=== PATIENT | male | born 1990 | race African-American/Black ===

== ENCOUNTER 2016-08-13 16:40 | Emergency (ER) | payer SELFPAY ==
[2016-08-13] MEDS ORDERED: Ibuprofen 200 MG TAB ONE (17:15)
== END 2016-08-13 17:38 | disposition home or self-care (01) ==
LOC: NAV ERS 16:40
DX: K02.9 Dental caries, unspecified (principal); J02.9 Acute pharyngitis, unspecified; J45.909 Unspecified asthma, uncomplicated
CPT/HCPCS: 99283

== ENCOUNTER 2016-10-09 20:23 | Emergency (ER) | payer SELFPAY ==
[2016-10-09] MEDS ORDERED: Amoxicillin/Potassium Clav 875 MG TAB ONE (20:56)
[2016-10-09] MEDS ORDERED: Ibuprofen 800 MG TAB ONE (20:56)
== END 2016-10-09 21:00 | disposition home or self-care (01) ==
LOC: NAV ERS 20:23
DX: K08.89 Other specified disorders of teeth and supporting structures (principal)
CPT/HCPCS: 99282

== ENCOUNTER 2017-01-04 17:28 | Emergency (ER) | payer SELFPAY ==
[2017-01-04] MEDS ORDERED: Ibuprofen 800 MG TAB ONE (17:40)
== END 2017-01-04 17:58 | disposition home or self-care (01) ==
LOC: NAV ERS 17:28
DX: H60.91 Unspecified otitis externa, right ear (principal); F17.210 Nicotine dependence, cigarettes, uncomplicated
CPT/HCPCS: 99283

== ENCOUNTER 2017-01-05 06:17 | Emergency (ER) | payer SELFPAY | END 2017-01-05 06:54 | disposition home or self-care (01) | LOC: NAV ERS 06:17 | DX: H65.91 Unspecified nonsuppurative otitis media, right ear (principal); H60.91 Unspecified otitis externa, right ear; F17.210 Nicotine dependence, cigarettes, uncomplicated | CPT/HCPCS: 99282 ==

== ENCOUNTER 2022-01-15 16:51 | Emergency (ER) | payer SELFPAY ==
[2022-01-15] MEDS ORDERED: Ibuprofen 200 MG TAB ONE ×2 (17:05)
== END 2022-01-15 18:08 | disposition home or self-care (01) ==
LOC: NAV ERS 16:51
DX: J10.1 Influenza due to other identified influenza virus with other respiratory manifestations (principal); F17.210 Nicotine dependence, cigarettes, uncomplicated
CPT/HCPCS: 87804; 99283

== ENCOUNTER 2022-07-09 11:27 | Emergency (ER) | payer SELFPAY ==
[2022-07-09] MEDS ORDERED: Tetracaine 0.5% PF 4 ML BOT ONE (11:52)
[2022-07-09] MEDS ORDERED: Fluorescein Opthalmic Strip ONE (12:15)
== END 2022-07-09 12:45 | disposition home or self-care (01) ==
LOC: NAV ERS 11:27
DX: S05.02XA Injury of conjunctiva and corneal abrasion without foreign body, left eye, initial encounter (principal); F17.210 Nicotine dependence, cigarettes, uncomplicated; X58.XXXA Exposure to other specified factors, initial encounter
CPT/HCPCS: 99283

== ENCOUNTER 2022-10-31 10:28 | Emergency (ER) | payer SELFPAY ==
[2022-10-31] MEDS ORDERED: Ondansetron ODT 4 MG TAB ONE (10:58)
== END 2022-10-31 11:10 | disposition home or self-care (01) ==
LOC: NAV ERS 10:28
DX: A08.4 Viral intestinal infection, unspecified (principal); I10 Essential (primary) hypertension; F17.210 Nicotine dependence, cigarettes, uncomplicated
CPT/HCPCS: 99283; Q0162

== ENCOUNTER 2023-10-01 07:45 | Emergency (ER) | payer SELFPAY ==
[2023-10-01] MEDS ORDERED: Ibuprofen 800 MG TAB ONE (08:19)
== END 2023-10-01 08:30 | disposition home or self-care (01) ==
LOC: NAV ERS 07:45
DX: S30.0XXA Contusion of lower back and pelvis, initial encounter (principal); F17.210 Nicotine dependence, cigarettes, uncomplicated; W01.10XA Fall on same level from slipping, tripping and stumbling with subsequent striking against unspecified object, initial encounter
CPT/HCPCS: 99283

== ENCOUNTER 2024-01-06 10:50 | Emergency (ER) | payer SELFPAY ==
[2024-01-06] MEDS ORDERED: Metoclopramide HCl 10 MG (2 mL) VIAL ONE (11:33)
[2024-01-06] MEDS ORDERED: diphenhydrAMINE 50 MG/ML VIAL ONE (11:33)
[2024-01-06] MEDS ORDERED: Sodium Chloride 0.9% 1,000 ML ONE (11:34)
== END 2024-01-06 13:50 | disposition home or self-care (01) ==
LOC: NAV ERS 10:50
DX: G43.909 Migraine, unspecified, not intractable, without status migrainosus (principal); F17.210 Nicotine dependence, cigarettes, uncomplicated
CPT/HCPCS: 96365; 96375; J1200; J2765; J7030

== ENCOUNTER 2024-10-20 23:53 | Emergency (ER) | payer OTHER | END 2024-10-21 00:47 | disposition home or self-care (01) | LOC: NAV ERS 23:53 | DX: R51.9 Headache, unspecified (principal); F17.210 Nicotine dependence, cigarettes, uncomplicated | CPT/HCPCS: 99283 ==

== ENCOUNTER 2025-02-02 08:01 | Emergency (ER) | payer OTHER, SELFPAY | END 2025-02-02 08:55 | disposition home or self-care (01) | LOC: NAV ERS 08:01 | DX: J20.9 Acute bronchitis, unspecified (principal); I10 Essential (primary) hypertension; F17.210 Nicotine dependence, cigarettes, uncomplicated | CPT/HCPCS: 71046 ==